=== PATIENT | female | born 1960 | race Two or more races ===

== ENCOUNTER 2018-06-24 00:44 | Emergency (ER) | payer OTHER ==
[~2018-06-24] VITALS: Ht 160 cm; Wt 59.0 kg
[2018-06-24 05:05] VITALS: BP 112/69
== END 2018-06-24 05:07 | disposition home or self-care (01) ==
LOC: ER 00:44
DX: R09.89 Other specified symptoms and signs involving the circulatory and respiratory systems (principal); E78.00 Pure hypercholesterolemia, unspecified; Z90.710 Acquired absence of both cervix and uterus; Z98.890 Other specified postprocedural states
CPT/HCPCS: 70360; 99283; 99284